=== PATIENT | male | born 1940 | race Caucasian/White ===

== ENCOUNTER 2016-02-22 16:28 | Inpatient (IN) | payer OTHER, MEDICARE ==
[2016-02-22] VITALS (7 sets, daily range): BP systolic 83–147; BP diastolic 46–62
[~2016-02-22] VITALS: Ht 182.9 cm; Wt 104.4 kg
--- NOTE | ~2016-02-22 | PR ---
[place], [place] PROGRESS NOTE NAME: [id number] UNIT #: [id number] ROOM: 411 DOCTOR: AKIN LAMAR MD BIRTHDATE: [birth year] DOS: 02/27/2016 HISTORY OF PRESENT ILLNESS: The patient has presented with a chief complaint of abdominal pain, abnormal liver function tests. The patient has undergone endoscopic retrograde cholangiopancreatography and precut papillotomy and extension papillotomy and balloon sweep of common duct from choledocholithiasis and common duct stent by his size 10 x 5 stent at common bile duct. His labs and records have been reviewed. His basic metabolic panel, potassium of 3.2 has been addressed. His CBC, differential, white blood cell 12, H and H of 11 and 34 has been noticed. His KUB of the abdomen has been no acute perforation, there is a common bile duct stent. Multiple images have been obtained from the upper abdomen. Labs and records periodically readdressed. His bilirubin has dropped to 1.4. GOT, GPT within normal limits 20 and 78 respectively, alkaline phosphatase 106, amylase and lipase 114 and 861. PAST MEDICAL HISTORY: Associated pancreatitis, choledocholithiasis, cholelithiasis, hyperlipidemia, hypertension. PAST SURGICAL HISTORY: Elbow and tonsil. REVIEW OF SYSTEMS: HEENT: Denies double vision, blurred vision. RESPIRATORY: Denies shortness of breath. CARDIOVASCULAR: Denies chest pain. DIGESTIVE SYSTEM: No hematemesis, no hematochezia. PHYSICAL EXAMINATION: VITAL SIGNS: Stable. HEENT: Within normal limits. NECK: Supple, no thyromegaly, no cervical lymphadenopathy. CHEST: Symmetric anatomy, equal expansion. No wheeze, no rhonchi. HEART: Normal sinus rhythm, no gallop, no murmur. ABDOMEN: Soft. No hepato-organomegaly. Bowel sounds present. No pulsatile mass. EXTREMITIES: No cyanosis, no pedal edema. NEUROLOGIC: Alert, oriented to time, place, person. IMPRESSION: History of cholelithiasis, history of choledocholithiasis, status post endoscopic retrograde cholangiopancreatography, status post papillotomy, status post balloon sweep of common duct from the stones, status post common duct stent and significant improvement of LFTs, residual pancreatitis still present, which is expected. He is on a full liquid diet. We are going to continue with full liquid diet and repeat amylase, lipase tomorrow. Potassium has to be addressed. [place], [place] PROGRESS NOTE NAME: ARIS TRINIDAD SR UNIT #: [id number] ROOM: [facility] DOCTOR: AKIN LAMAR MD BIRTHDATE: [birth year] AKIN LAMAR MD CM:PNDIAN [id number] AKNI LAMAR MD 02/28/16 0813 interface
--- NOTE | ~2016-02-22 | PR ---
[place], [place] PROGRESS NOTE NAME: [facility]IDAD SR [facility] [id number] UNIT #: [id number] ROOM: 411 DOCTOR: AKIN LAMAR MD BIRTHDATE: [birth year] DOS: 02/28/2016 REASON FOR CONSULTATION ILLNESS: A 75-year-old patient who is status post ERCP, history of pancreatitis, history of abnormal liver function tests, choledocholithiasis, pancreatitis, status post ERCP and therapeutic and stent placement and stone removal. Blood cultures have been unremarkable. REVIEW OF SYSTEM: No hematemesis, no hematochezia, no chest pain, no shortness of breath. PHYSICAL EXAMINATION: VITAL SIGNS: Stable. HEENT: Benign. NECK: Supple, no thyromegaly. No cervical lymphadenopathy. CHEST: Symmetric anatomy, equal expansion. HEART: Normal sinus rhythm, no gallop, no murmur. ABDOMEN: Soft. No hepato-organomegaly. Bowel sounds present. EXTREMITIES: No cyanosis, no pedal edema. NEUROLOGIC: Alert, oriented to time and place. IMPRESSION: Status post pancreatitis, status post ERCP and therapeutics, hypokalemia has been addressed with 80 mEq of KCl according to the nurse and supportive management, follow up on lipase, and should it drop below 800, we are going to feed soft diet. LFTs are entirely normal. AKIN LAMAR MD CM:PNTRANS [id number] AKIN LAMAR MD 04/07/16 1330 interface
--- NOTE | ~2016-02-22 | O ---
[place], [place] OPERATIVE NOTE NAME: ARIS TRINIDAD SR UNIT #: [id number] ROOM: 411 DOCTOR: AKNI LAMAR MD BIRTHDATE: [birth year] DOS: 02/25/2016 CHIEF COMPLAINT: The patient has presented with abnormal LFTs, pancreatitis, undergoing investigation. PROCEDURE: Today's procedure part of investigation is endoscopic retrograde cholangiopancreatography plus papillotomy plus balloon sweep of common duct plus stone extraction and common duct stent placement. PREMEDICATION: Versed and Diprivan. SCOPE: Olympus side-viewing duodenoscope. REPORT: After putting the patient in the left lateral position and after application of lubricant to the scope, the Olympus side-viewing duodenoscope was introduced; thereafter, under direct visualization, I advanced through the length of esophagus into gastric pouch into duodenal bulb. Papilla of vater was defined, selective cannulation of common duct was undertaken. Dye was sent to opacify the hepatic radicle and cystic duct was filled, gallbladder was filled. Papillotomy at 1 o'clock was performed. Balloon size 12 was utilized, multiple sweeps were done. Small stone was extracted, photographed. Stent size 8 x 5 was deployed into the common duct and the patient tolerated the procedure well. IMPRESSION: Status post endoscopic retrograde cholangiopancreatography, status post papillotomy, status post common duct stone extraction, status post common duct stent, history of pancreatitis. PLAN AND DISCUSSION: We are going to follow on pancreatitis and LFTs and clinical reassessment. AKIN LAMAR MD CM:OPRECORD:OPERATIVE NOTE [id number] 10 AKIN LAMAR MD 02/25/162009 interface
--- NOTE | ~2016-02-22 | CON ---
[place], [place] REPORT OF CONSULTATION NAME: ARIS TRINIDAD SR UNIT #: [id number] ROOM: 411 DOCTOR: AKIN LAMAR MD BIRTHDATE: [birth year] DOS: 02/25/2016 GASTROENDOSCOPIC REPORT HISTORY OF PRESENT ILLNESS: The patient is a 75-year-old who has presented with multiple medical problems, among which pancreatitis, among which abdominal pain and I have been asked for abnormal liver function test and pancreatitis followup. Lactic acid at the time of admission was 2.0. White blood cell was 16, H and H of 15 and 43, neutrophils 80. Chest x-ray, difficult to exclude minimal left basilar pneumonia initially. Comprehensive metabolic panel, BUN and creatinine are 14 and 1.4, potassium was 2.9, which was addressed; abnormal liver function test with bilirubin of 3.3, GOT and GPT of mid 200, alkaline phosphatase of mid 200. CT scan of the abdomen and pelvis was obtained. Cholelithiasis, choledocholithiasis, pancreatitis, all has been documented. His liver function test abnormalities continue as CBC differential white blood cells normalized to 8.9, and his lipase reduced to 15,000, and basic metabolic panel today, electrolytes balanced potassium is still 3.2, which has been addressed, white blood cell 11. His blood cultures remain negative. PAST MEDICAL HISTORY: Associated with pancreatitis, choledocholithiasis, cholelithiasis, abnormal LFTs, pneumonia, hyperlipidemia, hypertension, UTIs. PAST SURGICAL HISTORY: Elbow and tonsil. SOCIAL HISTORY: Nonsmoker, nonalcohol consumer. FAMILY HISTORY: Noncontributory. ALLERGIES: No known medication. REVIEW OF SYSTEMS: HEENT: Denies double vision or blurred vision. RESPIRATORY: Denies shortness of breath. CARDIOVASCULAR: Denies chest pain. DIGESTIVE SYSTEM: Nausea, gross abdominal pain. PHYSICAL EXAMINATION: VITAL SIGNS: Stable. HEENT: Within normal limits. NECK: Supple, no thyromegaly. CHEST: Symmetric anatomy, equal expansion. HEART: Normal sinus rhythm. No gallop, no murmur. ABDOMEN: Soft. No hepato-organomegaly. Bowel sounds present. No pulsatile mass. Gross abdominal tenderness. EXTREMITIES: No cyanosis. No pedal edema. NEUROLOGICAL: Alert, oriented to time, place and person. IMPRESSION: Abnormal liver function test, pancreatitis, cholelithiasis, choledocholithiasis, hyperlipidemia, hypokalemia, hypertension. [place], [place] REPORT OF CONSULTATION NAME: ARIS TRINIDAD SR UNIT #: [id number] ROOM: 411 DOCTOR: AKIN LAMAR MD BIRTHDATE: [birth year] PLAN AND DISCUSSION: ERCP for removal of choledocholithiasis. Case discussed with the patient and family. Risk of the test is infection, perforation, and bleeding all have been discussed with him. AKIN LAMAR MD CM:CONSTR:REPORT OF CONSULTATION 1408 04/07/16 1313 interface
[~2016-02-22 16:28] MED LIST: "\\\"WATER PILL\\\""; ASPI-COR81 M1 PO; ASPIR 8181 MG PO; ASPIRIN81 M1 PO; AVODART0.5 MG PO; CARDURA1 MG PO; CARDURA8 M1 PO; CIPRO500 MG PO; DILAUDID2 MG PO; DOXAZOSIN; DSS100 MG PO; HYDROCHLOROTH12.5 M3 PO; HYDROCODONE BIT1 T11 PO; HYDRODIURIL25 MG PO; LEVAQUIN750 MG PO; LIPITOR40 MG PO; LISINOPRIL/HCTZ1 TA3 PO; METOPROLOL SUCC50 M1 PO; MULTI VITAMINS1 TAB PO; NEXIUM40 MG PO; OXYCODONE5 M1 PO; PRAVACHOL10 MG PO; PRAVACHOL80 MG PO; PRAVASTATIN SOD40 MG PO; PRAVASTATIN SOD80 MG PO; PREDNISONE20 MG PO; PREVACID30 M1 PO; PREVACID30 MG PO; PROSCAR5 MG PO; RESTORIL30 MG PO; SENNA8.6 MG PO; SEPTRA DS 800 M1 TAB PO; TESSALON PERLE200 MG PO; TOPROL XL25 MG PO; TOPROL XL50 MG PO; ZANTAC 300300 MG PO; ZESTRIL10 MG PO; ZESTRIL5 MG PO; ZITHROMAX Z PA250 MG PO
[2016-02-22] MEDS ORDERED: LIPITOR10 MG PO (16:39)
[2016-02-22 17:09] LABS: BASO # 0.1 10*3/uL (0.0-0.1); BASO % 0.4 % (0.0-1.0); EOS # 0.1 10*3/uL (0.0-0.4); EOS % 0.6 % (1.0-4.0); HEMOGLOBIN 15.1 g/dl (14.0-18.0); IG # 0.1 10*3/uL (0.0-0.1); LYMPH # 2.1 10*3/uL (1.3-4.4); LYMPH % 12.8 % (27.0-41.0); MEAN CELL VOLUME 86.5 fl (80.0-94.0); MEAN CORPUSCULAR HGB 30.4 pg (27.0-31.0); MEAN CORPUSCULAR HGB CONC 35.1 g/dl (33.0-37.0); MEAN PLATELET VOLUME 9.9 fl (9.6-12.3); MONO # 0.8 10*3/uL (0.1-1.0); MONO % 5.2 % (3.0-9.0); NEUT # 13.1 10*3/uL (2.3-7.9); NEUT % 80.5 % (47.0-73.0); PLATELET COUNT AUTOMATED 208 10*3/uL (130-400); RED BLOOD COUNT 4.97 10*6/uL (4.50-5.90); RED CELL DISTRI WIDTH 12.4 % (0-14.5); WHITE BLOOD COUNT 16.3 10*3/uL (4.8-10.8)
[2016-02-22 17:22] LABS: MAGNESIUM 2.1 mg/dL (1.5-2.1)
[2016-02-22 17:23] LABS: ALBUMIN 4.2 gm/dl (3.1-4.5); BILIRUBIN, TOTAL 3.3 mg/dl (0.2-1.0); POTASSIUM 2.9 mmol/L (3.5-5.1); TOTAL PROTEIN 7.5 gm/dL (6.4-8.2)
[2016-02-22] MEDS ORDERED: ZESTORETIC 12.51 TA2 PO (20:27)
[2016-02-22] MEDS ORDERED: LIPITOR40 MG PO (20:34)
[2016-02-23] VITALS: BP 167/68
[2016-02-23 00:48] LABS: CKMB 0.6 ng/ml (0.5-3.6)
[2016-02-23 06:00] LABS: CKMB 0.5 ng/ml (0.5-3.6)
[2016-02-23 06:19] LABS: BASO % 0.1 % (0.0-1.0); HEMATOCRIT 40.3 % (42.0-52.0); HEMOGLOBIN 13.9 g/dl (14.0-18.0); LYMPH # 0.5 10*3/uL (1.3-4.4); MEAN CORPUSCULAR HGB 30.9 pg (27.0-31.0); MEAN CORPUSCULAR HGB CONC 34.5 g/dl (33.0-37.0); MEAN PLATELET VOLUME 10.4 fl (9.6-12.3); MONO # 0.4 10*3/uL (0.1-1.0); MONO % 4.6 % (3.0-9.0); NEUT # 7.9 10*3/uL (2.3-7.9); RED CELL DISTRI WIDTH 12.6 % (0-14.5); WHITE BLOOD COUNT 8.9 10*3/uL (4.8-10.8)
[2016-02-23 06:20] LABS: ALBUMIN 3.3 gm/dl (3.1-4.5); ALKALINE PHOSPHATASE 207 U/L (45-117); BILIRUBIN, TOTAL 4.1 mg/dl (0.2-1.0); BUN 17 mg/dl (7-24); CARBON DIOXIDE 25 mmol/L (21-32); CHLORIDE 107 mmol/L (98-107); EST GLOM FILT AFRICAN AMERICAN > 60 ml/min; GLUCOSE 155 mg/dL (65-99); SGOT/AST 248 IU/L (3-35); SGPT/ALT 321 U/L (12-78); SODIUM 142 mmol/L (136-145); TOTAL PROTEIN 5.7 gm/dL (6.4-8.2)
[2016-02-23 06:30] LABS: FREE T4 1.34 ng/dl (0.76-1.46); THYROID STIM HORMONE (HS) 0.338 uIU/ml (0.358-4.75)
[2016-02-23 06:34] LABS: POTASSIUM 4.2 mmol/L (3.5-5.1)
[2016-02-23 06:41] LABS: MEAN CELL VOLUME 89.6 fl (80.0-94.0)
[2016-02-23 06:42] LABS: PLATELET COUNT AUTOMATED 140 10*3/uL (130-400)
[2016-02-23 06:50] LABS: PROTHROMBIN TIME 10.9 SECONDS (9.0-12.4)
[2016-02-23 06:58] LABS: HEMOGLOBIN A1c 5.3 % (4.8-5.6)
[2016-02-23 08:00] VITALS: BP 144/51
[2016-02-23 08:39] VITALS: BP 120/86
[2016-02-23 09:22] LABS: FOLIC ACID 15.07 ng/mL (>5.38)
[2016-02-23 12:00] VITALS: BP 146/60
[2016-02-23 16:00] VITALS: BP 126/49
[2016-02-23 20:00] VITALS: BP 158/66
[2016-02-23 22:15] LABS: BILIRUBIN 1+ (NEGATIVE); BLOOD TRACE-INTACT (NEGATIVE); CLARITY CLEAR (CLEAR); COLOR YELLOW (YELLOW); GLUCOSE NEGATIVE (NEGATIVE); KETONE NEGATIVE (NEGATIVE); LEUKO ESTERASE NEGATIVE (NEGATIVE); NITRITE NEGATIVE (NEGATIVE); PROTEIN TRACE (NEGATIVE); SPECIFIC GRAVITY >= 1.030 (1.005-1.030)
[2016-02-23 22:21] LABS: BACTERIA 4+
[2016-02-24] VITALS: BP 140/44
[2016-02-24 06:58] LABS: HEMATOCRIT 35.4 % (42.0-52.0); HEMOGLOBIN 12.1 g/dl (14.0-18.0); MEAN CELL VOLUME 90.3 fl (80.0-94.0); MEAN CORPUSCULAR HGB 30.9 pg (27.0-31.0); MEAN CORPUSCULAR HGB CONC 34.2 g/dl (33.0-37.0); MEAN PLATELET VOLUME 10.1 fl (9.6-12.3); RED BLOOD COUNT 3.92 10*6/uL (4.50-5.90); RED CELL DISTRI WIDTH 13.1 % (0-14.5); WHITE BLOOD COUNT 13.6 10*3/uL (4.8-10.8)
[2016-02-24 07:03] LABS: PLATELET COUNT AUTOMATED 94 10*3/uL (130-400)
[2016-02-24 07:27] LABS: ALBUMIN 2.8 gm/dl (3.1-4.5); ALKALINE PHOSPHATASE 154 U/L (45-117); BUN 16 mg/dl (7-24); CARBON DIOXIDE 23 mmol/L (21-32); CHLORIDE 112 mmol/L (98-107); EST GLOM FILT AFRICAN AMERICAN > 60 ml/min; GLUCOSE 98 mg/dL (65-99); POTASSIUM 3.5 mmol/L (3.5-5.1); SGOT/AST 80 IU/L (3-35); SGPT/ALT 190 U/L (12-78); SODIUM 146 mmol/L (136-145); TOTAL PROTEIN 5.4 gm/dL (6.4-8.2)
[2016-02-24 07:30] LABS: ALBUMIN 2.7 gm/dl (3.1-4.5); ALKALINE PHOSPHATASE 153 U/L (45-117); BILIRUBIN, DIRECT 0.5 mg/dL (0.0-0.2); BUN 16 mg/dl (7-24); CARBON DIOXIDE 23 mmol/L (21-32); CHLORIDE 112 mmol/L (98-107); EST GLOM FILT AFRICAN AMERICAN > 60 ml/min; GLUCOSE 99 mg/dL (65-99); POTASSIUM 3.5 mmol/L (3.5-5.1); SGOT/AST 80 IU/L (3-35); SGPT/ALT 192 U/L (12-78); SODIUM 145 mmol/L (136-145); TOTAL PROTEIN 5.6 gm/dL (6.4-8.2)
[2016-02-24 07:31] LABS: LYMPHOCYTE # 0.3 10*3/uL (1.3-4.4); MONOCYTE # 0.5 10*3/uL (0.1-1.0); NEUTROPHIL # 12.8 10*3/uL (2.3-7.9); NEUTROPHILS 94 % (47-73); PLATELET SUFFICIENCY NORMAL (NORMAL); TOTAL CELLS COUNTED 100 #CELLS
[2016-02-24 08:00] VITALS: BP 154/64
[2016-02-24 12:00] VITALS: BP 152/62
[2016-02-24 16:00] VITALS: BP 176/65
[2016-02-24 20:00] VITALS: BP 160/52
[2016-02-25] VITALS (9 sets, daily range): BP systolic 123–186; BP diastolic 59–84
[2016-02-25 07:33] LABS: BUN 17 mg/dl (7-24); CARBON DIOXIDE 21 mmol/L (21-32); CHLORIDE 110 mmol/L (98-107); EST GLOM FILT AFRICAN AMERICAN > 60 ml/min; GLUCOSE 100 mg/dL (65-99); POTASSIUM 3.2 mmol/L (3.5-5.1); SODIUM 143 mmol/L (136-145)
[2016-02-25 09:40] LABS: BASO % 0.2 % (0.0-1.0); HEMATOCRIT 33.5 % (42.0-52.0); HEMOGLOBIN 11.4 g/dl (14.0-18.0); IG # 0.1 10*3/uL (0.0-0.1); LYMPH # 0.6 10*3/uL (1.3-4.4); LYMPH % 4.8 % (27.0-41.0); MEAN CELL VOLUME 90.1 fl (80.0-94.0); MEAN CORPUSCULAR HGB 30.6 pg (27.0-31.0); MEAN PLATELET VOLUME 10.1 fl (9.6-12.3); MONO # 0.4 10*3/uL (0.1-1.0); MONO % 3.8 % (3.0-9.0); NEUT # 10.6 10*3/uL (2.3-7.9); PLATELET COUNT AUTOMATED 81 10*3/uL (130-400); RED BLOOD COUNT 3.72 10*6/uL (4.50-5.90); RED CELL DISTRI WIDTH 12.9 % (0-14.5); WHITE BLOOD COUNT 11.7 10*3/uL (4.8-10.8)
[2016-02-26] VITALS: BP 141/57
[2016-02-26 07:30] LABS: BASO % 0.2 % (0.0-1.0); EOS % 0.1 % (1.0-4.0); HEMATOCRIT 33.4 % (42.0-52.0); HEMOGLOBIN 11.2 g/dl (14.0-18.0); IG # 0.2 10*3/uL (0.0-0.1); LYMPH # 0.7 10*3/uL (1.3-4.4); LYMPH % 6.2 % (27.0-41.0); MEAN CORPUSCULAR HGB 30.2 pg (27.0-31.0); MEAN CORPUSCULAR HGB CONC 33.5 g/dl (33.0-37.0); MEAN PLATELET VOLUME 10.6 fl (9.6-12.3); MONO # 0.6 10*3/uL (0.1-1.0); MONO % 5.2 % (3.0-9.0); NEUT # 9.2 10*3/uL (2.3-7.9); NEUT % 86.3 % (47.0-73.0); PLATELET COUNT AUTOMATED 97 10*3/uL (130-400); RED BLOOD COUNT 3.71 10*6/uL (4.50-5.90); RED CELL DISTRI WIDTH 12.9 % (0-14.5); WHITE BLOOD COUNT 10.7 10*3/uL (4.8-10.8)
[2016-02-26 08:00] VITALS: BP 172/70
[2016-02-26 08:20] LABS: ALBUMIN 2.3 gm/dl (3.1-4.5); ALKALINE PHOSPHATASE 106 U/L (45-117); BILIRUBIN, DIRECT 0.4 mg/dL (0.0-0.2); BILIRUBIN, TOTAL 1.4 mg/dl (0.2-1.0); BUN 13 mg/dl (7-24); CARBON DIOXIDE 25 mmol/L (21-32); CHLORIDE 110 mmol/L (98-107); EST GLOM FILT AFRICAN AMERICAN > 60 ml/min; GLUCOSE 96 mg/dL (65-99); PHOSPHOROUS 1.7 mg/dL (2.5-4.9); POTASSIUM 3.2 mmol/L (3.5-5.1); SGOT/AST 20 IU/L (3-35); SGPT/ALT 78 U/L (12-78); SODIUM 144 mmol/L (136-145); TOTAL PROTEIN 5.4 gm/dL (6.4-8.2)
[2016-02-26 12:00] VITALS: BP 180/78
[2016-02-26 16:00] VITALS: BP 150/70
[2016-02-26 20:00] VITALS: BP 162/65
[2016-02-27] VITALS: BP 151/62
[2016-02-27 05:38] LABS: BUN 12 mg/dl (7-24); CARBON DIOXIDE 20 mmol/L (21-32); CHLORIDE 109 mmol/L (98-107); EST GLOM FILT AFRICAN AMERICAN > 60 ml/min; GLUCOSE 97 mg/dL (65-99); POTASSIUM 3.2 mmol/L (3.5-5.1); SODIUM 140 mmol/L (136-145)
[2016-02-27 07:24] LABS: BASO % 0.3 % (0.0-1.0); EOS % 0.3 % (1.0-4.0); HEMATOCRIT 34.3 % (42.0-52.0); HEMOGLOBIN 11.8 g/dl (14.0-18.0); IG # 0.1 10*3/uL (0.0-0.1); LYMPH # 0.6 10*3/uL (1.3-4.4); LYMPH % 4.8 % (27.0-41.0); MEAN CELL VOLUME 89.3 fl (80.0-94.0); MEAN CORPUSCULAR HGB 30.7 pg (27.0-31.0); MEAN CORPUSCULAR HGB CONC 34.4 g/dl (33.0-37.0); MEAN PLATELET VOLUME 9.5 fl (9.6-12.3); MONO # 0.6 10*3/uL (0.1-1.0); MONO % 5.2 % (3.0-9.0); NEUT % 88.8 % (47.0-73.0); PLATELET COUNT AUTOMATED 114 10*3/uL (130-400); RED BLOOD COUNT 3.84 10*6/uL (4.50-5.90); RED CELL DISTRI WIDTH 12.7 % (0-14.5); WHITE BLOOD COUNT 12.4 10*3/uL (4.8-10.8)
[2016-02-27 08:00] VITALS: BP 186/74
[2016-02-27 12:00] VITALS: BP 170/71
[2016-02-27 16:00] VITALS: BP 167/70
[2016-02-27 20:00] VITALS: BP 152/80
[2016-02-28] VITALS: BP 156/66
[2016-02-28 05:53] LABS: BUN 10 mg/dl (7-24); CARBON DIOXIDE 22 mmol/L (21-32); CHLORIDE 107 mmol/L (98-107); EST GLOM FILT AFRICAN AMERICAN > 60 ml/min; GLUCOSE 116 mg/dL (65-99); POTASSIUM 2.9 mmol/L (3.5-5.1); SODIUM 141 mmol/L (136-145)
[2016-02-28 06:08] LABS: BASO % 0.4 % (0.0-1.0); EOS # 0.1 10*3/uL (0.0-0.4); HEMATOCRIT 33.5 % (42.0-52.0); HEMOGLOBIN 11.5 g/dl (14.0-18.0); IG # 0.1 10*3/uL (0.0-0.1); LYMPH # 0.7 10*3/uL (1.3-4.4); LYMPH % 6.1 % (27.0-41.0); MEAN CELL VOLUME 88.9 fl (80.0-94.0); MEAN CORPUSCULAR HGB 30.5 pg (27.0-31.0); MEAN CORPUSCULAR HGB CONC 34.3 g/dl (33.0-37.0); MEAN PLATELET VOLUME 10.2 fl (9.6-12.3); MONO # 0.7 10*3/uL (0.1-1.0); MONO % 6.5 % (3.0-9.0); NEUT # 9.4 10*3/uL (2.3-7.9); NEUT % 84.9 % (47.0-73.0); PLATELET COUNT AUTOMATED 119 10*3/uL (130-400); RED BLOOD COUNT 3.77 10*6/uL (4.50-5.90); RED CELL DISTRI WIDTH 12.8 % (0-14.5); WHITE BLOOD COUNT 11.1 10*3/uL (4.8-10.8)
[2016-02-28 08:00] VITALS: BP 140/60
[2016-02-28 09:15] LABS: ALBUMIN 1.9 gm/dl (3.1-4.5); ALKALINE PHOSPHATASE 103 U/L (45-117); GLUCOSE 116 mg/dL (65-99); SGOT/AST 32 IU/L (3-35); SGPT/ALT 57 U/L (12-78); TOTAL PROTEIN 5.2 gm/dL (6.4-8.2)
[2016-02-28 09:16] LABS: BUN 10 mg/dl (7-24); CARBON DIOXIDE 22 mmol/L (21-32); CHLORIDE 107 mmol/L (98-107); EST GLOM FILT AFRICAN AMERICAN > 60 ml/min; POTASSIUM 2.9 mmol/L (3.5-5.1); SODIUM 141 mmol/L (136-145)
[2016-02-28 12:00] VITALS: BP 140/63
[2016-02-28 16:00] VITALS: BP 180/70
[2016-02-28 17:30] VITALS: BP 142/78
[2016-02-28 20:00] VITALS: BP 148/72
[2016-02-29] VITALS: BP 150/68
[2016-02-29 08:00] VITALS: BP 150/76
[2016-02-29 08:36] LABS: BUN 9 mg/dl (7-24); CARBON DIOXIDE 24 mmol/L (21-32); CHLORIDE 109 mmol/L (98-107); EST GLOM FILT AFRICAN AMERICAN > 60 ml/min; GLUCOSE 123 mg/dL (65-99); SODIUM 143 mmol/L (136-145)
[2016-02-29 12:00] VITALS: BP 166/70
== END 2016-02-29 15:08 | disposition home or self-care (01) | DRG 871 ==
LOC: ED 16:28 → 4E 18:06 → EDHOLD 18:06 → 4E 18:35
PROVIDERS: Internal Medicine; Internal Medicine Gastroenterology; Nurse Practitioner Family; Student in an Organized Health Care Education/Training Program
PROC: 0FC98ZZ Extirpation of Matter from Common Bile Duct, Via Natural or Artificial Opening Endoscopic (ICD-10-PCS; principal; 2016-02-25)
PROC: 0F798DZ Dilation of Common Bile Duct with Intraluminal Device, Via Natural or Artificial Opening Endoscopic (ICD-10-PCS; principal; 2016-02-25)
DX: A41.9 Sepsis, unspecified organism (principal); J69.0 Pneumonitis due to inhalation of food and vomit; N17.0 Acute kidney failure with tubular necrosis; E44.0 Moderate protein-calorie malnutrition; K85.10 Biliary acute pancreatitis without necrosis or infection; K80.71 Calculus of gallbladder and bile duct without cholecystitis with obstruction; R65.20 Severe sepsis without septic shock; E78.5 Hyperlipidemia, unspecified; I10 Essential (primary) hypertension; N40.0 Benign prostatic hyperplasia without lower urinary tract symptoms; E83.51 Hypocalcemia; D64.9 Anemia, unspecified; R73.9 Hyperglycemia, unspecified; D69.6 Thrombocytopenia, unspecified; E87.6 Hypokalemia; Z68.31 Body mass index [BMI] 31.0-31.9, adult; Z98.890 Other specified postprocedural states; Z83.3 Family history of diabetes mellitus; Z82.49 Family history of ischemic heart disease and other diseases of the circulatory system

== ENCOUNTER → 2016-06-16 | Day surgery (SDC) | payer OTHER, MEDICARE ==
[~2016-06-16] VITALS: Ht 182.8 cm; Wt 104.3 kg
[~2016-06-16] MED LIST changes: +LIPITOR10 MG PO; +ZESTORETIC 12.51 TA2 PO; +[UNRECOGNIZED DRUG - CODE]
--- NOTE | ~2016-06-16 | OP ---
[place], [place] OUTPATIENT NOTE NAME: ARIS TRINIDAD SR UNIT #: [id number] ROOM: DOCTOR: AKIN LAMAR MD BIRTHDATE: [birth year] DATE: 06/16/16 CHIEF COMPLAINT: The patient has presented with history of common duct stone, stents and ERCP in past, status post cholecystectomy. PROCEDURE: Today's procedure part of investigation is ERCP plus common duct stent removal and common duct stone removal with balloon. PREMEDICATION: Versed and Diprivan. SCOPE: Olympus side-viewing duodenoscope. REPORT: After putting the patient in the left lateral position and after application of lubricant to the scope, the scope was introduced; thereafter, under direct visualization and advanced to the papilla. Common duct stent was snared and orally extracted. At this stage, rescoped, guidewire was advanced through ____ hepatic radicles. Balloon, which was passed, size 12. ____ small stone was extracted. The patient extubated and tolerated procedure well. IMPRESSION: Endoscopic retrograde cholangiopancreatography, status post common duct stent removal plus common duct stone removal. PLAN: Observation, LFTs and clinical reassessment. AKIN LAMAR MD CM:OUTNOTE:OUTPATIENT NOTE 1004 [id number] AKIN LAMAR MD 06/17/16 1741 ESTRELLITA FOX.R
--- NOTE | ~2016-06-16 | OP ---
[place], [place] OUTPATIENT NOTE NAME: ARIS TRINIDAD SR UNIT #: [id number] ROOM: DOCTOR: AKIN LAMAR MD BIRTHDATE: [birth year] DATE: 06/16/16 CHIEF COMPLAINT: The patient has presented with history of common duct stone, stents and ERCP in past, status post cholecystectomy. PROCEDURE: Today's procedure part of investigation is ERCP plus common duct stent removal and common duct stone removal with balloon. PREMEDICATION: Versed and Diprivan. SCOPE: Olympus side-viewing duodenoscope. REPORT: After putting the patient in the left lateral position and after application of lubricant to the scope, the scope was introduced; thereafter, under direct visualization and advanced to the papilla. Common duct stent was snared and orally extracted. At this stage, rescoped, guidewire was advanced through ____ hepatic radicles. Balloon, which was passed, size 12. ____ small stone was extracted. The patient extubated and tolerated procedure well. IMPRESSION: Endoscopic retrograde cholangiopancreatography, status post common duct stent removal plus common duct stone removal. PLAN: Observation, LFTs and clinical reassessment. AKIN LAMAR MD CM:OUTNOTE:OUTPATIENT NOTE 1004 1004 AKIN LAMAR MD 06/17/16 1744 ESTRELLITA FOX.R
[2016-06-16 08:33] VITALS: BP 144/73
[2016-06-16 10:05] VITALS: BP 123/69
[2016-06-16 10:14] VITALS: BP 131/74
[2016-06-16 10:30] VITALS: BP 136/79
== END | disposition home or self-care (01) ==
LOC: SDC 06-10 10:15
DX: K80.50 Calculus of bile duct without cholangitis or cholecystitis without obstruction (principal); Z45.89 Encounter for adjustment and management of other implanted devices; K21.9 Gastro-esophageal reflux disease without esophagitis; I10 Essential (primary) hypertension; E78.00 Pure hypercholesterolemia, unspecified; Z87.01 Personal history of pneumonia (recurrent); N40.0 Benign prostatic hyperplasia without lower urinary tract symptoms; Z83.3 Family history of diabetes mellitus

== ENCOUNTER → 2016-09-08 | Day surgery (SDC) | payer OTHER, MEDICARE ==
[~2016-09-08] VITALS: Ht 182.8 cm; Wt 104.3 kg
[~2016-09-08] MED LIST changes: +FINASTERIDE5 M1 PO
[2016-09-08 07:30] VITALS: BP 126/74
[2016-09-08 08:29] VITALS: BP 91/51
[2016-09-08 08:44] VITALS: BP 109/56
[2016-09-08 08:59] VITALS: BP 110/57
== END | disposition home or self-care (01) ==
LOC: SDC 08-10 11:00
DX: D12.2 Benign neoplasm of ascending colon (principal); K57.30 Diverticulosis of large intestine without perforation or abscess without bleeding; K21.9 Gastro-esophageal reflux disease without esophagitis; Z86.010 Personal history of colon polyps; I10 Essential (primary) hypertension; E78.00 Pure hypercholesterolemia, unspecified; Z87.81 Personal history of (healed) traumatic fracture; Z98.890 Other specified postprocedural states; Z87.891 Personal history of nicotine dependence

== ENCOUNTER 2017-03-16 12:39 | Inpatient (IN) | payer MEDICARE ==
[~2017-03-16] VITALS: Ht 182.8 cm; Wt 97.7 kg
[2017-03-16] VITALS (9 sets, daily range): BP systolic 119–149; BP diastolic 52–67
[2017-03-16 13:39] LABS: BASO % 0.4 % (0.0-1.0); EOS # 0.1 10*3/uL (0.0-0.4); EOS % 1.9 % (1.0-4.0); HEMATOCRIT 40.5 % (42.0-52.0); HEMOGLOBIN 14.4 g/dl (14.0-18.0); LYMPH # 1.3 10*3/uL (1.3-4.4); LYMPH % 27.9 % (27.0-41.0); MEAN CELL VOLUME 84.9 fl (80.0-94.0); MEAN CORPUSCULAR HGB 30.2 pg (27.0-31.0); MEAN CORPUSCULAR HGB CONC 35.6 g/dl (33.0-37.0); MONO # 0.4 10*3/uL (0.1-1.0); MONO % 7.4 % (3.0-9.0); PLATELET COUNT AUTOMATED 129 10*3/uL (130-400); RED BLOOD COUNT 4.77 10*6/uL (4.50-5.90); RED CELL DISTRI WIDTH 12.3 % (0-14.5); WHITE BLOOD COUNT 4.8 10*3/uL (4.8-10.8)
[2017-03-16 13:41] LABS: BILIRUBIN NEGATIVE (NEGATIVE); BLOOD NEGATIVE (NEGATIVE); CLARITY SL CLOUDY (CLEAR); COLOR YELLOW (YELLOW); GLUCOSE NEGATIVE (NEGATIVE); KETONE NEGATIVE (NEGATIVE); LEUKO ESTERASE NEGATIVE (NEGATIVE); NITRITE NEGATIVE (NEGATIVE); SPECIFIC GRAVITY 1.025 (1.005-1.030); UROBILINOGEN 0.2 E.U./dl (0.2-1.0)
[2017-03-16 13:48] LABS: ACT PARTIAL THROMBO TIME 24.6 SECONDS (20.8-31.5)
[2017-03-16 13:55] LABS: ALBUMIN 3.7 gm/dl (3.1-4.5); ALKALINE PHOSPHATASE 72 U/L (45-117); BUN 20 mg/dl (7-24); CHLORIDE 104 mmol/L (98-107); CREATININE 1.18 mg/dL (0.70-1.30); LIPASE 154 U/L (73-393); POTASSIUM 3.4 mmol/L (3.5-5.1); SGOT/AST 18 IU/L (3-35); SGPT/ALT 24 U/L (12-78); SODIUM 139 mmol/L (136-145); TOTAL PROTEIN 7.3 gm/dL (6.4-8.2); TROPONIN I < 0.015 ng/ml (<0.045)
[2017-03-16 14:09] LABS: BACTERIA TRACE; EPITHELIAL CELLS 15-20; MUCOUS 1+; WBC 0-2 wbc/hpf (0-5)
[2017-03-17 07:46] LABS: HEMATOCRIT 36.8 % (42.0-52.0); HEMOGLOBIN 12.9 g/dl (14.0-18.0); LYMPH # 0.5 10*3/uL (1.3-4.4); LYMPH % 14.6 % (27.0-41.0); MEAN CELL VOLUME 87.8 fl (80.0-94.0); MEAN CORPUSCULAR HGB 30.8 pg (27.0-31.0); MEAN CORPUSCULAR HGB CONC 35.1 g/dl (33.0-37.0); MONO # 0.1 10*3/uL (0.1-1.0); MONO % 3.2 % (3.0-9.0); NEUT # 2.9 10*3/uL (2.3-7.9); NEUT % 81.6 % (47.0-73.0); PLATELET COUNT AUTOMATED 107 10*3/uL (130-400); RED BLOOD COUNT 4.19 10*6/uL (4.50-5.90); RED CELL DISTRI WIDTH 12.2 % (0-14.5); WHITE BLOOD COUNT 3.5 10*3/uL (4.8-10.8)
[2017-03-17 08:00] VITALS: BP 147/65
[2017-03-17 08:17] LABS: BUN 20 mg/dl (7-24); CHLORIDE 107 mmol/L (98-107); CHOLESTEROL 132 mg/dL (<200); CREATININE 1.06 mg/dL (0.70-1.30); HDL CHOLESTEROL 42 mg/dl (40-60); LDL CHOLESTEROL 73 mg/dL (9-159); PHOSPHOROUS 2.6 mg/dL (2.5-4.9); POTASSIUM 4.2 mmol/L (3.5-5.1); SODIUM 141 mmol/L (136-145); TRIGLYCERIDES 83 mg/dl (<150); VLDL CHOLESTEROL 17 mg/dL (6-40)
[2017-03-17 08:43] LABS: VITAMIN D, 25-HYDROXY 25.5 ng/mL (30-100)
[2017-03-17 12:00] VITALS: BP 163/68
[2017-03-17 16:00] VITALS: BP 154/50
[2017-03-17 20:00] VITALS: BP 152/56
[2017-03-18] VITALS: BP 155/50
[2017-03-18 08:00] VITALS: BP 156/60
[2017-03-18 12:00] VITALS: BP 139/96
[2017-03-18] MEDS ORDERED: PREDNISONE10 MG PO (12:39)
[2017-03-18] MEDS ORDERED: LEVAQUIN750 M1 PO (12:39)
== END 2017-03-18 14:46 | disposition home or self-care (01) | DRG 866 ==
LOC: ED 12:39 → 4E 16:26 → EDHOLD 16:26 → 4E 16:37
PROVIDERS: Emergency Medicine; Student in an Organized Health Care Education/Training Program
DX: B34.9 Viral infection, unspecified (principal); D69.6 Thrombocytopenia, unspecified; D64.9 Anemia, unspecified; E86.0 Dehydration; R53.1 Weakness; R55 Syncope and collapse; I10 Essential (primary) hypertension; N40.0 Benign prostatic hyperplasia without lower urinary tract symptoms; E87.6 Hypokalemia; E78.5 Hyperlipidemia, unspecified; R73.9 Hyperglycemia, unspecified; Z90.49 Acquired absence of other specified parts of digestive tract; Z82.49 Family history of ischemic heart disease and other diseases of the circulatory system; Z79.899 Other long term (current) drug therapy

== ENCOUNTER → 2018-08-17 | Outpatient (CLI) | payer OTHER ==
[~2018-08-17] MED LIST changes: +LEVAQUIN750 M1 PO; +PREDNISONE10 MG PO
[2018-08-17 10:42] LABS: BUN 16 mg/dl (7-24); CHLORIDE 103 mmol/L (98-107); CHOLESTEROL 158 mg/dL (<200); HDL CHOLESTEROL 50 mg/dl (40-60); LDL CHOLESTEROL 73 mg/dL (9-159); POTASSIUM 4.5 mmol/L (3.5-5.1); SODIUM 138 mmol/L (136-145); TRIGLYCERIDES 173 mg/dl (<150); VLDL CHOLESTEROL 35 mg/dL (6-40)
== END | disposition home or self-care (01) ==
LOC: LAB 09:56
PROVIDERS: Family Medicine
DX: E78.2 Mixed hyperlipidemia (principal); I10 Essential (primary) hypertension

== ENCOUNTER → 2019-01-30 | Outpatient (CLI) | payer OTHER ==
[2019-01-30 11:06] LABS: BUN 11 mg/dl (7-24); CHLORIDE 105 mmol/L (98-107); CHOLESTEROL 158 mg/dL (<200); CREATININE 0.99 mg/dL (0.70-1.30); HDL CHOLESTEROL 53 mg/dl (40-60); LDL CHOLESTEROL 88 mg/dL (9-159); POTASSIUM 4.2 mmol/L (3.5-5.1); SODIUM 139 mmol/L (136-145); TRIGLYCERIDES 83 mg/dl (<150); VLDL CHOLESTEROL 17 mg/dL (6-40)
== END | disposition home or self-care (01) ==
LOC: LAB 09:50
PROVIDERS: Family Medicine
DX: I10 Essential (primary) hypertension (principal); E78.2 Mixed hyperlipidemia; R73.9 Hyperglycemia, unspecified

== ENCOUNTER → 2020-01-17 | Outpatient (CLI) | payer MEDICARE | END | disposition home or self-care (01) | LOC: CARD 10:00 | PROVIDERS: ATTEND Internal Medicine Cardiovascular Disease | DX: I49.3 Ventricular premature depolarization (principal) ==

== ENCOUNTER → 2020-07-10 | Outpatient (CLI) | payer MEDICARE ==
[2020-07-10 11:08] LABS: BUN 14 mg/dl (7-24); CHLORIDE 105 mmol/L (98-107); CREATININE 1.16 mg/dL (0.70-1.30); POTASSIUM 4.1 mmol/L (3.5-5.1); SODIUM 138 mmol/L (136-145)
== END | disposition home or self-care (01) ==
LOC: LAB 10:39
PROVIDERS: ATTEND Internal Medicine Cardiovascular Disease
DX: I10 Essential (primary) hypertension (principal)

== ENCOUNTER 2020-12-04 09:22 | Emergency (ER) | payer MEDICARE ==
[~2020-12-04] VITALS: Ht 182 cm; Wt 106.6 kg
[2020-12-04 09:59] VITALS: BP 127/59
[2020-12-04 10:30] LABS: BASO % 0.2 % (0.0-1.0); EOS # 0.1 10*3/uL (0.0-0.4); EOS % 0.3 % (1.0-4.0); HEMATOCRIT 38.9 % (42.0-52.0); LYMPH # 0.7 10*3/uL (1.3-4.4); MEAN CELL VOLUME 90.9 fl (80.0-94.0); MEAN CORPUSCULAR HGB 31.5 pg (27.0-31.0); MEAN CORPUSCULAR HGB CONC 34.7 g/dl (33.0-37.0); MEAN PLATELET VOLUME 9.3 fl (9.6-12.3); MONO # 1.1 10*3/uL (0.1-1.0); MONO % 6.1 % (3.0-9.0); NEUT # 16.2 10*3/uL (2.3-7.9); NEUT % 88.7 % (47.0-73.0); PLATELET COUNT AUTOMATED 153 10*3/uL (130-400); RED BLOOD COUNT 4.28 10*6/uL (4.50-5.90); RED CELL DISTRI WIDTH 12.3 % (0-14.5); WHITE BLOOD COUNT 18.3 10*3/uL (4.8-10.8)
[2020-12-04 10:45] LABS: ALBUMIN 3.4 gm/dl (3.1-4.5); ALKALINE PHOSPHATASE 73 U/L (45-117); BUN 17 mg/dl (7-24); CHLORIDE 102 mmol/L (98-107); CREATININE 1.19 mg/dL (0.70-1.30); POTASSIUM 4.1 mmol/L (3.5-5.1); SGOT/AST 15 IU/L (3-35); SGPT/ALT 23 U/L (12-78); SODIUM 136 mmol/L (136-145); TOTAL PROTEIN 6.8 gm/dL (6.4-8.2)
[2020-12-04 11:54] LABS: BILIRUBIN Negative (Negative); BLOOD 2+ (Negative); CLARITY Cloudy (Clear); COLOR Yellow (Yellow); GLUCOSE Negative (Negative); KETONE Negative (Negative); LEUKO ESTERASE 3+ (Negative); NITRITE Positive (Negative); PH 5.5 (4.5-8.0)
[2020-12-04] MEDS ORDERED: CIPRO500 MG PO (12:04)
[2020-12-04 12:07] LABS: BACTERIA 3+; RBC 21-30 rbc/hpf (0-2); WBC TNTC wbc/hpf (0-5)
== END 2020-12-04 12:12 | disposition home or self-care (01) ==
LOC: ED 09:22
PROVIDERS: Student in an Organized Health Care Education/Training Program
DX: N39.0 Urinary tract infection, site not specified (principal); N41.9 Inflammatory disease of prostate, unspecified; Z79.899 Other long term (current) drug therapy

== ENCOUNTER 2021-06-12 16:34 | Emergency (ER) | payer MEDICARE ==
[2021-06-12 16:39] VITALS: BP 152/52
[2021-06-12] MEDS ORDERED: AMOXICILLIN500 M2 PO (17:12)
== END 2021-06-12 17:24 | disposition home or self-care (01) ==
LOC: ED 16:34
DX: K08.89 Other specified disorders of teeth and supporting structures (principal); Z87.891 Personal history of nicotine dependence; Z98.890 Other specified postprocedural states; Z79.899 Other long term (current) drug therapy

== ENCOUNTER → 2021-08-22 | Outpatient (CLI) | payer MEDICARE ==
[~2021-08-22] MED LIST changes: +AMOXICILLIN500 M2 PO
[2021-08-22 10:45] LABS: BUN 18 mg/dl (7-24); CHLORIDE 107 mmol/L (98-107); CHOLESTEROL 148 mg/dL (<200); LDL CHOLESTEROL 75 mg/dL (9-159); SGOT/AST 12 IU/L (3-35); SGPT/ALT 18 U/L (12-78); SODIUM 140 mmol/L (136-145); TRIGLYCERIDES 150 mg/dl (<150)
== END | disposition home or self-care (01) ==
LOC: LAB 10:03
PROVIDERS: ATTEND Internal Medicine Cardiovascular Disease
DX: I10 Essential (primary) hypertension (principal)

== ENCOUNTER 2021-09-15 09:50 | Emergency (ER) | payer MEDICARE ==
[~2021-09-15] VITALS: Ht 182.8 cm; Wt 108.9 kg
[2021-09-15] MEDS ORDERED: LISINOPRIL-HCT1 EACH PO (10:07)
[2021-09-15] MEDS ORDERED: METOPROLOL SUCC50 M1 PO (10:08)
[2021-09-15] MEDS ORDERED: TAMSULOSIN HCL0.4 MG PO (10:08)
[2021-09-15 10:13] VITALS: BP 141/53
[2021-09-15 10:26] LABS: BASO % 0.5 % (0.0-1.0); EOS # 0.3 10*3/uL (0.0-0.4); EOS % 2.9 % (1.0-4.0); HEMATOCRIT 39.6 % (42.0-52.0); LYMPH # 1.2 10*3/uL (1.3-4.4); LYMPH % 13.8 % (27.0-41.0); MEAN CORPUSCULAR HGB 31.4 pg (27.0-31.0); MEAN CORPUSCULAR HGB CONC 34.8 g/dl (33.0-37.0); MEAN PLATELET VOLUME 9.8 fl (9.6-12.3); MONO # 0.6 10*3/uL (0.1-1.0); MONO % 6.2 % (3.0-9.0); NEUT # 6.8 10*3/uL (2.3-7.9); NEUT % 76.4 % (47.0-73.0); PLATELET COUNT AUTOMATED 165 10*3/uL (130-400); RED CELL DISTRI WIDTH 12.2 % (0-14.5); WHITE BLOOD COUNT 8.9 10*3/uL (4.8-10.8)
[2021-09-15 10:36] LABS: ACT PARTIAL THROMBO TIME 27.1 SECONDS (20.0-32.1)
[2021-09-15 10:48] LABS: BUN 17 mg/dl (7-24); CHLORIDE 106 mmol/L (98-107); CREATININE 1.08 mg/dL (0.70-1.30); POTASSIUM 3.8 mmol/L (3.5-5.1); SGOT/AST 12 IU/L (3-35); SODIUM 138 mmol/L (136-145)
[2021-09-15 10:58] LABS: ALKALINE PHOSPHATASE 81 U/L (45-117); SGPT/ALT 16 U/L (12-78); TOTAL PROTEIN 6.7 gm/dL (6.4-8.2)
[2021-09-15] MEDS ORDERED: CLEOCIN HCL150 MG PO (11:50)
== END 2021-09-15 12:10 | disposition home or self-care (01) ==
LOC: ED 09:50
PROVIDERS: Emergency Medicine
DX: K04.7 Periapical abscess without sinus (principal); Z79.899 Other long term (current) drug therapy; Z90.49 Acquired absence of other specified parts of digestive tract; Z98.890 Other specified postprocedural states; Z87.891 Personal history of nicotine dependence; Z90.89 Acquired absence of other organs

== ENCOUNTER → 2021-11-19 | Outpatient (CLI) | payer MEDICARE ==
[~2021-11-19] MED LIST changes: +CLEOCIN HCL150 MG PO; +LISINOPRIL-HCT1 EACH PO; +TAMSULOSIN HCL0.4 MG PO
== END | disposition home or self-care (01) ==
LOC: LAB 10:10
PROVIDERS: ATTEND Physician Assistant Medical
DX: N40.1 Benign prostatic hyperplasia with lower urinary tract symptoms (principal)

== ENCOUNTER → 2022-07-02 | Outpatient (CLI) | payer MEDICARE | END | disposition home or self-care (01) | LOC: RAD 10:21 | PROVIDERS: ATTEND Internal Medicine | DX: R07.89 Other chest pain (principal) ==

== ENCOUNTER → 2022-08-23 | Day surgery (SDC) | payer MEDICARE ==
[~2022-08-23] VITALS: Ht 182.8 cm; Wt 108.9 kg
[~2022-08-23] MED LIST changes: +HYDROCODONE-AC1 EAC1 PO
[2022-08-23 09:37] VITALS: BP 134/66
[2022-08-23 10:55] VITALS: BP 166/79
[2022-08-23 11:00] VITALS: BP 184/78
[2022-08-23 11:05] VITALS: BP 189/90
[2022-08-23 11:10] VITALS: BP 182/86
== END ==
LOC: SDC 08-19 13:15
PROVIDERS: ATTEND Surgery
DX: D36.7 Benign neoplasm of other specified sites (principal); I10 Essential (primary) hypertension; E78.5 Hyperlipidemia, unspecified; K21.9 Gastro-esophageal reflux disease without esophagitis; Z98.890 Other specified postprocedural states; Z79.899 Other long term (current) drug therapy

== ENCOUNTER 2023-04-10 18:45 | Emergency (ER) | payer MEDICARE ==
[~2023-04-10] VITALS: Ht 180.3 cm; Wt 101.6 kg
[~2023-04-10 18:45] MED LIST changes: +LOPRESSOR25 MG PO
[2023-04-10 19:10] VITALS: BP 166/58
[2023-04-10 19:35] LABS: BASO % 0.4 % (0.0-1.0); EOS # 0.2 10*3/uL (0.0-0.4); EOS % 2.8 % (1.0-4.0); HEMATOCRIT 37.2 % (42.0-52.0); LYMPH % 12.4 % (27.0-41.0); MEAN CELL VOLUME 88.6 fl (80.0-94.0); MEAN CORPUSCULAR HGB 30.2 pg (27.0-31.0); MEAN CORPUSCULAR HGB CONC 34.1 g/dl (33.0-37.0); MEAN PLATELET VOLUME 9.5 fl (9.6-12.3); MONO # 0.5 10*3/uL (0.1-1.0); MONO % 6.4 % (3.0-9.0); NEUT # 6.1 10*3/uL (2.3-7.9); NEUT % 77.4 % (47.0-73.0); PLATELET COUNT AUTOMATED 125 10*3/uL (130-400); RED CELL DISTRI WIDTH 12.4 % (0-14.5); WHITE BLOOD COUNT 7.9 10*3/uL (4.8-10.8)
[2023-04-10 19:57] LABS: BUN 10 mg/dl (9-23); CHLORIDE 99 mmol/L (98-107); POTASSIUM 3.8 mmol/L (3.4-5.1)
[2023-04-10] MEDS ORDERED: Enoxaparin Sodium 100 MG/ML SYR SC ONE (20:50)
[2023-04-11] MEDS ORDERED: CLARITIN10 MG PO (10:01)
[2023-04-11] MEDS ORDERED: [UNRECOGNIZED DRUG - REMARK] (13:38)
[2023-04-11] MEDS ORDERED: NEURONTIN100 MG PO (17:44)
[2023-04-11] MEDS ORDERED: VITAMIN D250 MCG PO (17:45)
[2023-04-11] MEDS ORDERED: NASONEX 24HR AL17 ML NAS (17:46)
[2023-04-13] MEDS ORDERED: XARE15TA PO (13:21)
== END 2023-04-10 21:02 | disposition home or self-care (01) ==
LOC: ED 18:45
PROVIDERS: Physician Assistant Medical
DX: R60.0 Localized edema (principal); M79.662 Pain in left lower leg; R79.1 Abnormal coagulation profile; I10 Essential (primary) hypertension; E78.5 Hyperlipidemia, unspecified; Z79.899 Other long term (current) drug therapy; Z90.49 Acquired absence of other specified parts of digestive tract; Z98.890 Other specified postprocedural states; Z90.89 Acquired absence of other organs; Z87.891 Personal history of nicotine dependence

== ENCOUNTER → 2023-04-11 | Outpatient (CLI) | payer MEDICARE ==
[~2023-04-11] MED LIST changes: +CLARITIN10 MG PO; +NASONEX 24HR AL17 ML NAS; +NEURONTIN100 MG PO; +VITAMIN D250 MCG PO; +XARE15TA PO; +[UNRECOGNIZED DRUG - REMARK]
== END | disposition home or self-care (01) ==
LOC: US 09:14
PROVIDERS: ATTEND Physician Assistant Medical
DX: I82.432 Acute embolism and thrombosis of left popliteal vein (principal); R60.9 Edema, unspecified

== ENCOUNTER → 2023-05-18 | Outpatient (CLI) | payer MEDICARE | END | disposition home or self-care (01) | LOC: US 09:00 | PROVIDERS: ATTEND Internal Medicine Cardiovascular Disease | DX: I82.432 Acute embolism and thrombosis of left popliteal vein (principal); I82.452 Acute embolism and thrombosis of left peroneal vein; I82.442 Acute embolism and thrombosis of left tibial vein; I26.94 Multiple subsegmental thrombotic pulmonary emboli without acute cor pulmonale ==

== ENCOUNTER 2024-03-28 17:46 | Emergency (ER) | payer MEDICARE ==
[~2024-03-28] VITALS: Wt 108.9 kg
[2024-03-28 18:31] VITALS: BP 118/60
[2024-03-28 18:42] LABS: BASO % 0.5 % (0.0-1.0); EOS # 0.1 10*3/uL (0.0-0.4); EOS % 1.6 % (1.0-4.0); HEMATOCRIT 41.5 % (42.0-52.0); MEAN CELL VOLUME 90.4 fl (80.0-94.0); MEAN CORPUSCULAR HGB 30.7 pg (27.0-31.0); MONO # 0.5 10*3/uL (0.1-1.0); NEUT # 5.3 10*3/uL (2.3-7.9); NEUT % 69.7 % (47.0-73.0); PLATELET COUNT AUTOMATED 174 10*3/uL (130-400); RED BLOOD COUNT 4.59 10*6/uL (4.50-5.90); RED CELL DISTRI WIDTH 12.6 % (0-14.5); WHITE BLOOD COUNT 7.6 10*3/uL (4.8-10.8)
[2024-03-28 19:01] LABS: BUN 13 mg/dl (9-23); CHLORIDE 100 mmol/L (98-107)
== END 2024-03-28 21:02 | disposition home or self-care (01) ==
LOC: ED 17:46
PROVIDERS: Nurse Practitioner Family
DX: I10 Essential (primary) hypertension (principal); E78.5 Hyperlipidemia, unspecified; E87.6 Hypokalemia; D64.9 Anemia, unspecified; K21.9 Gastro-esophageal reflux disease without esophagitis; R10.2 Pelvic and perineal pain; E78.00 Pure hypercholesterolemia, unspecified; Z90.89 Acquired absence of other organs; Z90.49 Acquired absence of other specified parts of digestive tract; Z98.890 Other specified postprocedural states; Z87.891 Personal history of nicotine dependence

== ENCOUNTER 2024-07-26 19:08 | Emergency (ER) | payer MEDICARE ==
[~2024-07-26] VITALS: Ht 182.8 cm; Wt 108.9 kg
[2024-07-26 19:22] VITALS: BP 120/67
[2024-07-26] MEDS ORDERED: SODIUM CHLORIDE 0.9% 500 ML IV ONE (19:40)
[2024-07-26 19:44] LABS: BASO % 0.2 % (0.0-1.0); EOS # 0.1 10*3/uL (0.0-0.4); EOS % 0.9 % (1.0-4.0); HEMATOCRIT 34.2 % (42.0-52.0); MEAN CELL VOLUME 90.2 fl (80.0-94.0); MEAN CORPUSCULAR HGB 31.7 pg (27.0-31.0); MEAN CORPUSCULAR HGB CONC 35.1 g/dl (33.0-37.0); MEAN PLATELET VOLUME 9.4 fl (9.6-12.3); MONO # 0.6 10*3/uL (0.1-1.0); MONO % 5.8 % (3.0-9.0); NEUT # 8.6 10*3/uL (2.3-7.9); NEUT % 82.7 % (47.0-73.0); PLATELET COUNT AUTOMATED 134 10*3/uL (130-400); RED BLOOD COUNT 3.79 10*6/uL (4.50-5.90); RED CELL DISTRI WIDTH 12.6 % (0-14.5); WHITE BLOOD COUNT 10.4 10*3/uL (4.8-10.8)
[2024-07-26 20:07] LABS: ALKALINE PHOSPHATASE 73 U/L (46-116); BUN 24 mg/dl (9-23); CHLORIDE 98 mmol/L (98-107); POTASSIUM 3.6 mmol/L (3.4-5.1); SGPT/ALT 14 U/L (5-49); TOTAL PROTEIN 6.4 gm/dL (6.0-8.0)
[2024-07-26 21:42] LABS: BILIRUBIN Negative (Negative); BLOOD Negative (Negative); CLARITY Clear (Clear); COLOR Yellow (Yellow); GLUCOSE Negative (Negative); KETONE Negative (Negative); LEUKO ESTERASE 2+ (Negative); NITRITE Negative (Negative)
[2024-07-26 21:57] LABS: BACTERIA 1+; RBC 0-2 rbc/hpf (0-2); WBC 41-50 wbc/hpf (0-5)
[2024-07-26] MEDS ORDERED: Ciprofloxacin Hydrochloride 500 MG TAB PO ONE (22:05)
[2024-07-26] MEDS ORDERED: cefTRIAXone Sodium 1 GM/10 ML SYR IV ONE (22:05)
[2024-07-26] MEDS ORDERED: Tamsulosin Hydrochloride 0.4 MG CAP PO ONE (22:05)
[2024-07-26] MEDS ORDERED: CIPRO500 MG PO (22:07)
[2024-07-26] MEDS ORDERED: FLOMAX0.4 MG PO (22:07)
== END 2024-07-26 22:14 | disposition home or self-care (01) ==
LOC: ED 19:08
PROVIDERS: Emergency Medicine
DX: N39.0 Urinary tract infection, site not specified (principal); R32 Unspecified urinary incontinence; Z79.899 Other long term (current) drug therapy; Z90.49 Acquired absence of other specified parts of digestive tract; Z98.890 Other specified postprocedural states; Z90.89 Acquired absence of other organs; Z87.891 Personal history of nicotine dependence